=== PATIENT | male | born 1950 | race Caucasian/White ===

== ENCOUNTER → 2021-04-09 | Outpatient (CLI) | payer OTHER | END | disposition home or self-care (01) | LOC: RAH 12:38 | PROVIDERS: ATTEND Internal Medicine Cardiovascular Disease | DX: I08.8 Other rheumatic multiple valve diseases (principal); I25.10 Atherosclerotic heart disease of native coronary artery without angina pectoris; I48.0 Paroxysmal atrial fibrillation; I11.9 Hypertensive heart disease without heart failure; E11.9 Type 2 diabetes mellitus without complications; E78.5 Hyperlipidemia, unspecified; E66.9 Obesity, unspecified; Z95.1 Presence of aortocoronary bypass graft | CPT/HCPCS: 93306; 93356 ==

== ENCOUNTER 2021-07-01 06:49 | Observation (INO) | payer OTHER ==
[2021-06-30 10:20] LABS: BASOPHILS % (AUTO) 0.5 % (0.0-5.0); HEMATOCRIT 36.6 % (42-54); LYMPHOCYTES % (AUTO) 14.5 % (21.0-51.0); MEAN CORPUSCULAR HEMOGLOBIN 29.9 pg (27.0-33.0); MEAN CORPUSCULAR HGB CONC 31.7 g/dL (32.0-36.0); MEAN CORPUSCULAR VOLUME 94.3 fL (79-99); NEUTROPHILS % (AUTO) 69.5 % (40.0-77.0); PLATELET COUNT (AUTO) 100 K/uL (130-400); RED BLOOD CELL COUNT(AUTO) 3.88 MIL/uL (4.50-6.20); RED CELL DISTRIBUTION WIDTH 16.4 % (11.0-15.5); WHITE BLOOD COUNT (AUTO) 4.2 K/uL (4.8-10.8)
[2021-06-30 10:30] LABS: INR 1.06 (0.85-1.15); PROTHROMBIN TIME 11.5 SEC (9.6-11.6)
[2021-06-30 10:32] LABS: CREATININE 1.1 mg/dL (0.5-1.5); POTASSIUM 3.9 mmol/L (3.5-5.1)
[2021-06-30 13:00] VITALS: BP 193/77
[2021-07-01] VITALS (11 sets, daily range): BP systolic 130–197; BP diastolic 67–82
[~2021-07-01] VITALS: Ht 170.2 cm; Wt 83.5 kg
[~2021-07-01 06:49] MED LIST: 0.9%NACL 1000ML 1,000 ML IV ONE; ALLO300T2 PO; ASCO100031 PO; ASPI-1197 PO; ATOR-2 PO; CLON0.1T PO; FERR-82 PO; FINA5TAB41 PO; LOSA100T58 PO; MAGN250T10 PO; MVIT PO; RIVA20TA PO; SERT-439 PO; TAMS-1 PO; TORS20TA4 PO; VITA-395 PO; VITAMIN D PO
[2021-07-01] MEDS ORDERED: IOHEXOL-350 75 ML VIAL IV ONE (08:44)
[2021-07-01] MEDS ORDERED: MEPERIDINE-PF 25 MG/ML SYG ONE ×4 (08:44→10:12)
[2021-07-01] MEDS ORDERED: MIDAZOLAM HCL 1 MG/ML 2ML VIAL ONE ×2 (08:44→09:21)
[2021-07-01] MEDS ORDERED: BUPIVACAINE/PF 0.25% 30ML VIAL IJ ONE (08:44)
[2021-07-01] MEDS ORDERED: LIDOCAINE HCL 1% MDV 50ML VIAL ONE (08:45)
[2021-07-01] MEDS ORDERED: LIDOCAINE HCL 400MG/20ML VIAL ONE (08:55)
[2021-07-01] MEDS: ASCORBIC ACID 500 MG TAB PO SCH (10:47)
[2021-07-01] MEDS: FERROUS SULFATE 325 MG TABLET.DR PO SCH (10:49)
[2021-07-01] MEDS ORDERED: ACETAMINOPHEN 325 MG TAB PO ONE (20:30)
[2021-07-01] MEDS: ACETAMINOPHEN 325 MG TAB ONE ×2 (20:35→21:32)
[2021-07-01] MEDS ORDERED: SERTRALINE HCL 50 MG TABLET PO SCH (21:00)
[2021-07-01] MEDS ORDERED: FINASTERIDE 5 MG TABLET PO SCH (21:00)
[2021-07-01] MEDS: CLONIDINE HCL 0.1 MG TABLET PO SCH (21:00)
[2021-07-01] MEDS ORDERED: ATORVASTATIN 40 MG TABLET PO SCH (21:00)
[2021-07-01] MEDS: TORSEMIDE 20 MG TAB PO SCH (21:00)
[2021-07-02 03:35] VITALS: BP 159/78
[2021-07-02 07:00] VITALS: BP 129/75
[2021-07-02] MEDS: ASCORBIC ACID 500 MG TAB PO SCH (08:56)
[2021-07-02] MEDS: TORSEMIDE 20 MG TAB PO SCH (08:57)
[2021-07-02] MEDS: FERROUS SULFATE 325 MG TABLET.DR PO SCH (08:57)
[2021-07-02] MEDS: CLONIDINE HCL 0.1 MG TABLET PO SCH ×2 (08:58→11:32)
[2021-07-02] MEDS ORDERED: TAMSULOSIN HCL 0.4 MG CAP.ER.24H PO SCH (09:00)
[2021-07-02] MEDS ORDERED: ALLOPURINOL 300 MG TABLET PO SCH (09:00)
[2021-07-02] MEDS ORDERED: LOSARTAN 100 MG TABLET PO SCH (09:00)
[2021-07-02] MEDS ORDERED: MAGNESIUM OXIDE 250 MG PO SCH (09:00)
[2021-07-02] MEDS ORDERED: VITAMIN D 50 MCG PO SCH (09:00)
[2021-07-02] MEDS ORDERED: MULTIVITAMIN TABLET PO SCH (09:00)
[2021-07-02] MEDS ORDERED: ASPIRIN 81MG CHEW TAB PO SCH (09:00)
[2021-07-02 11:35] VITALS: BP 163/69
== END 2021-07-02 14:30 | disposition home or self-care (01) ==
LOC: DAH 06:49 → DAHIP 06:50 → 4CH 16:00
PROVIDERS: ADMIT Internal Medicine Cardiovascular Disease; ATTEND Internal Medicine Cardiovascular Disease
DX: I48.21 Permanent atrial fibrillation (principal); I10 Essential (primary) hypertension; E78.5 Hyperlipidemia, unspecified; I25.10 Atherosclerotic heart disease of native coronary artery without angina pectoris; Z79.899 Other long term (current) drug therapy
CPT/HCPCS: 33274; 36415; 71045; 80048; 85025; 85610; 85730; 93005 ×3; A4215; A4216; A4221; A4222; A4223 ×3; A4606; A4663; C1769 ×2; C1785; C1894; G0378 ×27; J1644 ×4; J2175 ×4; J2250 ×2; J3490; J7030; Q9967; 96360; 96361; 99156; 99157

== ENCOUNTER → 2022-03-16 | Outpatient (CLI) | payer OTHER ==
[~2022-03-16] MED LIST changes: -0.9%NACL 1000ML 1,000 ML IV ONE
[2022-03-16 14:41] LABS: CREATININE 1.1 mg/dL (0.5-1.5); POTASSIUM 3.8 mmol/L (3.5-5.1)
== END | disposition home or self-care (01) ==
LOC: LAB 14:13
PROVIDERS: ATTEND Internal Medicine Cardiovascular Disease
DX: I25.10 Atherosclerotic heart disease of native coronary artery without angina pectoris (principal); I48.91 Unspecified atrial fibrillation
CPT/HCPCS: 36415; 80053; 83880

== ENCOUNTER 2022-06-04 06:39 | Day surgery (SDC) | payer OTHER ==
[2022-06-01 12:33] VITALS: BP 158/71
[2022-06-01 12:44] LABS: BASOPHILS % (AUTO) 0.2 % (0.0-5.0); EOSINOPHILS % (AUTO) 1.7 % (0.0-8.0); HEMATOCRIT 32.3 % (42-54); LYMPHOCYTES % (AUTO) 10.5 % (21.0-51.0); MEAN CORPUSCULAR HEMOGLOBIN 29.7 pg (27.0-33.0); MEAN CORPUSCULAR HGB CONC 31.9 g/dL (32.0-36.0); MEAN CORPUSCULAR VOLUME 93.1 fL (79-99); MONOCYTES % (AUTO) 12.6 % (3.0-13.0); NEUTROPHILS % (AUTO) 74.4 % (40.0-77.0); PLATELET COUNT (AUTO) 107 K/uL (130-400); RED BLOOD CELL COUNT(AUTO) 3.47 MIL/uL (4.50-6.20); RED CELL DISTRIBUTION WIDTH 17.1 % (11.0-15.5); WHITE BLOOD COUNT (AUTO) 4.8 K/uL (4.8-10.8)
[2022-06-01 12:49] LABS: CREATININE 1.2 mg/dL (0.5-1.5); POTASSIUM 4.3 mmol/L (3.5-5.1)
[2022-06-01 12:53] LABS: INR 1.05 (0.85-1.15); PROTHROMBIN TIME 11.4 SEC (9.6-11.6)
[2022-06-01 12:54] LABS: PARTIAL THROMBOPLASTIN TIME 31.6 SEC (26.3-35.5)
[2022-06-01 13:56] LABS: B-TYPE NATRIURETIC PEPTIDE 720 pg/mL (0-100)
[~2022-06-04] VITALS: Ht 167.6 cm; Wt 82.1 kg
[2022-06-04] VITALS (10 sets, daily range): BP systolic 132–153; BP diastolic 44–78
[~2022-06-04 06:39] MED LIST changes: -ALLO300T2 PO; -ATOR-2 PO; +ATOR40TA71 PO; -FERR-82 PO; +LORA10TA7 PO; -LOSA100T58 PO; +LOSA100T59 PO; -MAGN250T10 PO; +NIFE60TA81 PO; -VITA-395 PO; -VITAMIN D PO; +[UNRECOGNIZED DRUG - CODE] PO
[2022-06-04] MEDS ORDERED: 0.9%NACL 1000ML 1,000 ML IV ONE (06:47)
[2022-06-04] MEDS ORDERED: NITROGLYCERIN 50MG VIAL ONE (09:25)
[2022-06-04] MEDS ORDERED: HEPARIN 10,000 UNIT/10ML (1,000 UNIT/ML) VIAL ONE (09:25)
[2022-06-04] MEDS ORDERED: NICARDIPINE 25MG INJ IV ONE (09:25)
[2022-06-04] MEDS ORDERED: MIDAZOLAM HCL 1 MG/ML 2ML VIAL ONE (09:26)
[2022-06-04] MEDS ORDERED: FENTANYL CITRATE PF 50 MCG/1 ML 2ML VIAL ONE (09:26)
[2022-06-04] MEDS ORDERED: LIDOCAINE HCL 400MG/20ML VIAL ONE (09:27)
[2022-06-04] MEDS ORDERED: IODIXANOL 320 MG/ML 100 ML VIAL ONE (09:27)
[2022-06-04] MEDS ORDERED: GLUCAGON 1MG KIT 1 MG ML IM PRN (12:00)
[2022-06-04] MEDS ORDERED: 0.9%NACL 1000ML 1,000 ML IV SCH (12:00)
[2022-06-04] MEDS ORDERED: DEXTROSE 50%-WATER 50 ML DISP.SYRIN IV PRN (12:00)
== END 2022-06-04 15:45 | disposition home or self-care (01) ==
LOC: DAH 06:39
PROVIDERS: ATTEND Internal Medicine Cardiovascular Disease
DX: I70.211 Atherosclerosis of native arteries of extremities with intermittent claudication, right leg (principal); I70.92 Chronic total occlusion of artery of the extremities; I11.0 Hypertensive heart disease with heart failure; I50.32 Chronic diastolic (congestive) heart failure; E78.5 Hyperlipidemia, unspecified; I48.0 Paroxysmal atrial fibrillation; M10.9 Gout, unspecified; I25.10 Atherosclerotic heart disease of native coronary artery without angina pectoris; N40.0 Benign prostatic hyperplasia without lower urinary tract symptoms; G47.33 Obstructive sleep apnea (adult) (pediatric); I87.2 Venous insufficiency (chronic) (peripheral); Z95.5 Presence of coronary angioplasty implant and graft; Z82.49 Family history of ischemic heart disease and other diseases of the circulatory system; Z83.3 Family history of diabetes mellitus; Z87.891 Personal history of nicotine dependence; Z72.89 Other problems related to lifestyle; Z79.01 Long term (current) use of anticoagulants; Z98.890 Other specified postprocedural states; Z79.82 Long term (current) use of aspirin; Z79.899 Other long term (current) drug therapy
CPT/HCPCS: 80048; 83880; 85025; 85610; 85730; 36415; 71045; 93005; 75716; 36200; C1769; C1894 ×3; C1758; C1760; J3010; J3490 ×3; J7030; J1644 ×2; J2250; Q9967; A4215; A4222; A4221; A4663; A4216; A4606; A4223 ×3; 99156; 99157

== ENCOUNTER → 2022-06-22 | Outpatient (CLI) | payer OTHER ==
[~2022-06-22] MED LIST changes: +LOSA100T58 PO; -LOSA100T59 PO
[2022-06-22 13:02] LABS: ALBUMIN 4.1 g/dL (3.5-5.0); POTASSIUM 3.5 mmol/L (3.5-5.1); TOTAL PROTEIN, SERUM 7.4 g/dL (6.0-8.3)
== END | disposition home or self-care (01) ==
LOC: LAB 11:30
PROVIDERS: ATTEND Internal Medicine Cardiovascular Disease
DX: I10 Essential (primary) hypertension (principal)
CPT/HCPCS: 36415; 80053

== ENCOUNTER → 2022-07-02 | Outpatient (CLI) | payer OTHER ==
[~2022-07-02] MED LIST changes: +IOHEXOL 350 MG/ML 100ML INFUS..BTL IV ONE
== END | disposition home or self-care (01) ==
LOC: RAH 08:29
PROVIDERS: ATTEND Internal Medicine Cardiovascular Disease
DX: I70.0 Atherosclerosis of aorta (principal); I70.203 Unspecified atherosclerosis of native arteries of extremities, bilateral legs; I70.8 Atherosclerosis of other arteries; I51.7 Cardiomegaly
CPT/HCPCS: 75635; Q9967

== ENCOUNTER → 2022-10-14 | Outpatient (CLI) | payer OTHER ==
[~2022-10-14] MED LIST changes: -IOHEXOL 350 MG/ML 100ML INFUS..BTL IV ONE; -LOSA100T58 PO; +LOSA100T59 PO; +NIFE-79 PO; -NIFE60TA81 PO
[2022-10-14 12:17] LABS: BASOPHILS % (AUTO) 0.1 % (0.0-5.0); HEMATOCRIT 35.7 % (42-54); LYMPHOCYTES % (AUTO) 5.5 % (21.0-51.0); MEAN CORPUSCULAR HGB CONC 32.5 g/dL (32.0-36.0); MEAN CORPUSCULAR VOLUME 92.2 fL (79-99); MONOCYTES % (AUTO) 3.5 % (3.0-13.0); NEUTROPHILS % (AUTO) 88.9 % (40.0-77.0); PLATELET COUNT (AUTO) 118 K/uL (130-400); RED BLOOD CELL COUNT(AUTO) 3.87 MIL/uL (4.50-6.20); RED CELL DISTRIBUTION WIDTH 17.4 % (11.0-15.5); WHITE BLOOD COUNT (AUTO) 7.3 K/uL (4.8-10.8)
[2022-10-14 12:23] LABS: CREATININE 1.2 mg/dL (0.5-1.5); POTASSIUM 3.8 mmol/L (3.5-5.1)
[2022-10-14 12:40] LABS: INR 0.94 (0.85-1.15)
[2022-10-14 12:42] LABS: PARTIAL THROMBOPLASTIN TIME 28.5 SEC (26.3-35.5)
== END | disposition home or self-care (01) ==
LOC: LAB 11:02
PROVIDERS: ATTEND Internal Medicine Cardiovascular Disease
DX: I87.2 Venous insufficiency (chronic) (peripheral) (principal); I87.1 Compression of vein; I73.9 Peripheral vascular disease, unspecified; I48.0 Paroxysmal atrial fibrillation; I25.10 Atherosclerotic heart disease of native coronary artery without angina pectoris; I10 Essential (primary) hypertension; E78.5 Hyperlipidemia, unspecified; Z79.01 Long term (current) use of anticoagulants; Z79.899 Other long term (current) drug therapy; Z95.1 Presence of aortocoronary bypass graft
CPT/HCPCS: 36415; 80048; 85025; 85610; 85730

== ENCOUNTER → 2023-03-26 | Outpatient (CLI) | payer OTHER ==
[~2023-03-26] MED LIST changes: -ASCO100031 PO; -ASPI-1197 PO; +ATOR-2 PO; -ATOR40TA71 PO; +CLOP75TA32 PO; +HYDR-4060 PO; -LORA10TA7 PO; -LOSA100T59 PO; -MVIT PO; +NIFE-39 PO; -NIFE-79 PO; +PREG150C PO; -[UNRECOGNIZED DRUG - CODE] PO
== END | disposition home or self-care (01) ==
LOC: SHCH 11:11
PROVIDERS: ATTEND Internal Medicine Cardiovascular Disease
DX: I65.23 Occlusion and stenosis of bilateral carotid arteries (principal)
CPT/HCPCS: 93880

== ENCOUNTER → 2023-05-02 | Outpatient (CLI) | payer OTHER ==
[~2023-05-02] VITALS: Ht 170.2 cm; Wt 84.5 kg
[~2023-05-02] MED LIST changes: +AEC81 PO; +ASCO100031 PO; +CALCIUM PO; +GARL1000 PO; +MAGN400T40 PO; +METF-444 PO; +POTA99CA PO; +ZINC PO; +calcium PO; +iron PO; +mvi PO
[2023-05-02 10:26] LABS: HEMATOCRIT 25.6 % (42-54); LYMPHOCYTES # (AUTO) 0.6 K/uL (1.0-4.8); LYMPHOCYTES % (AUTO) 20.9 % (21.0-51.0); MEAN CORPUSCULAR HEMOGLOBIN 27.7 pg (27.0-33.0); MEAN CORPUSCULAR HGB CONC 30.9 g/dL (32.0-36.0); MEAN CORPUSCULAR VOLUME 89.8 fL (79-99); MONOCYTES # (AUTO) 0.4 K/uL (0.1-1.0); MONOCYTES % (AUTO) 13.2 % (3.0-13.0); NEUTROPHILS # (AUTO) 1.6 K/uL (1.8-7.7); NEUTROPHILS % (AUTO) 55.4 % (40.0-77.0); PLATELET COUNT (AUTO) 67 K/uL (130-400); RED BLOOD CELL COUNT(AUTO) 2.85 MIL/uL (4.50-6.20); RED CELL DISTRIBUTION WIDTH 18.4 % (11.0-15.5); WHITE BLOOD COUNT (AUTO) 2.9 K/uL (4.8-10.8)
[2023-05-02 10:30] LABS: INR 1.08 (0.85-1.15); PROTHROMBIN TIME 12.5 SEC (9.6-11.6)
[2023-05-02 11:03] VITALS: BP 138/50; PULSE 64; RESP 14
[2023-05-02 11:06] LABS: CREATININE 1.2 mg/dL (0.5-1.5); POTASSIUM 4.3 mmol/L (3.5-5.1)
[2023-05-02 11:09] LABS: B-TYPE NATRIURETIC PEPTIDE 808 pg/mL (0-100)
[2023-05-02 12:28] LABS: LYMPHOCYTES % (MANUAL) 17 % (22-44); MONOCYTES % (MANUAL) 2 % (2-9); SEGMENTED NEUTROPHILS % 81 % (40-70); TOTAL CELLS COUNTED 100
[2023-05-02 12:29] LABS: MAN.DIFF COMMENT-IMPRESSION MANUAL DIFFERENTIAL; PLATELET MORPHOLOGY COMMENT DECREASED
== END | disposition home or self-care (01) ==
LOC: EDSTATUS 09:00 → DAH 10:00
PROVIDERS: ATTEND Internal Medicine Cardiovascular Disease
DX: Z01.818 Encounter for other preprocedural examination (principal); I73.9 Peripheral vascular disease, unspecified; I44.7 Left bundle-branch block, unspecified; M79.604 Pain in right leg; M79.605 Pain in left leg; I48.91 Unspecified atrial fibrillation; I11.0 Hypertensive heart disease with heart failure; I50.32 Chronic diastolic (congestive) heart failure; R07.9 Chest pain, unspecified; R00.1 Bradycardia, unspecified; Z98.890 Other specified postprocedural states; Z79.899 Other long term (current) drug therapy
CPT/HCPCS: 36415; 71045; 80048; 83880; 85025; 85610; 85730; 93005